=== PATIENT | male | born 1955 | race Caucasian/White ===

== ENCOUNTER 2017-12-20 20:33 | Inpatient (IN) | payer OTHER ==
[~2017-12-20] VITALS: Ht 180.3 cm; Wt 128.7 kg
[2017-12-20] VITALS (184 sets, daily range): BP systolic 190; BP diastolic 97; PULSE 80; TEMP 97; O2SAT 83–97
[~2017-12-20 20:33] MED LIST: ASPIRIN 81M81 MG/TA2 PO; FLOMAX 0.40.4 MG/CAP PO; MULTIPLE VITAMI1 CAP PO; PRILOSEC 20MG20 MG PO; PRINZIDE 25 MG-1 TAB PO; TENORMIN 2525 MG/TAB PO; TIROSINT75 MCG PO
[2017-12-20] MEDS ORDERED: PRINIVIL20 MG PO (22:30)
[2017-12-20] MEDS ORDERED: HCTZ 25MG TAB25 MG PO (22:30)
[2017-12-20] MEDS ORDERED: PROAIR HFA0.09 MG/AC IH (22:31)
[2017-12-20] MEDS ORDERED: TENORMIN 2525 MG/TAB PO (22:31)
[2017-12-20] MEDS ORDERED: VITAMIN D 1001000 IU PO (22:33)
[2017-12-20] MEDS ORDERED: SINGULAIR 110 MG/TAB PO (22:36)
[2017-12-20] MEDS ORDERED: LIDEX OINT15GM TP (22:38)
[2017-12-20] MEDS ORDERED: ACIPHEX20 MG PO (22:38)
[2017-12-20] MEDS ORDERED: LIPITOR 80MG80 MG PO (22:39)
[2017-12-20] MEDS ORDERED: SPIRIVA RESPIMAT4 GM IH (22:41)
[2017-12-20] MEDS ORDERED: SYNTHROID0.088 MG/T PO (22:42)
[2017-12-21] VITALS (789 sets, daily range): BP systolic 112–178; BP diastolic 49–111; PULSE 42–85; TEMP 97.1–98.9; O2SAT 89–99
[2017-12-21 06:11] LABS: BASO % 0.2 % (0.0-2.0); EOS # 0.1 (0.0-0.7); EOS % 0.6 % (0-4.0); GRAN % 61.6 % (42.2-75.2); LYMPH # 3.3 (1.2-3.4); LYMPH % 28.9 % (20.0-51.0); MEAN CELL VOLUME 74 fl (80.0-100.0); MEAN CORPUSCULAR HGB CONC 30 g/dl (33.0-37.0); MEAN PLATELET VOLUME 9.9 fl (7.4-10.4); MONO # 0.9 (0.1-0.6); MONO % 8.3 % (1.7-9.3); PLATELET COUNT 239 K/mm3 (130-400); RED BLOOD COUNT 4.95 M/mm3 (4.20-5.60); REDCELL DISTRIBUTION WIDTH-CV 16.1 % (11.5-14.5)
[2017-12-21 06:17] LABS: HEMATOCRIT 36.7 % (42.0-52.0); HEMOGLOBIN 10.9 g/dl (13.5-18.0); MEAN CORPUSCULAR HEMOGLOBIN 22 pg (27.0-31.0)
[2017-12-21 06:18] LABS: ANION GAP 11 mmol/L (7-16); BLOOD UREA NITROGEN 21 mg/dL (9-20); CALCIUM 8.9 mg/dL (8.4-10.2); CARBON DIOXIDE 30 mmol/L (22-30); CHLORIDE 99 mmol/L (98-107); CREATININE, serum 0.88 mg/dL (0.66-1.25); GLUCOSE 105 mg/dL (74-106); POTASSIUM 3.4 mmol/L (3.4-5.0); SODIUM 139 mmol/L (137-145)
[2017-12-21 06:20] LABS: CHOLESTEROL RISK RATIO 3.6
[2017-12-21 06:30] LABS: TROPONIN-I < 0.012 ng/mL (0.000-0.034)
[2017-12-22 00:04] LABS: HOMOCYSTEINE 7.1 umol/L (5.5-16.2)
[2017-12-22 03:04] VITALS: BP 154/79; PULSE 67; TEMP 98
[2017-12-22 05:11] VITALS: BP 148/81; PULSE 71; TEMP 98.4
[2017-12-22 06:00] LABS: INR 1.1 (0.8-3.0); PROTHROMBIN TIME 13.2 SECONDS (9.7-12.8)
[2017-12-22 08:24] LABS: CALCIUM 9.3 mg/dL (8.4-10.2); CREATININE, serum 0.95 mg/dL (0.66-1.25); POTASSIUM 4.2 mmol/L (3.4-5.0)
[2017-12-22 09:33] LABS: FACTOR V LEIDEN MUTATION B Negative (Negative); PT G20210A MUTATION B Negative (Negative)
[2017-12-22 10:45] VITALS: BP 166/80; PULSE 79; TEMP 97.5
[2017-12-22 16:30] VITALS: BP 136/64; PULSE 74; TEMP 97.9
[2017-12-22 22:00] VITALS: BP 126/65; PULSE 78; TEMP 98
[2017-12-23 01:29] VITALS: BP 142/72; PULSE 75; TEMP 97.8
[2017-12-23 04:23] VITALS: BP 137/59; PULSE 69; TEMP 98.1
[2017-12-23 07:06] LABS: HEMATOCRIT 37.5 % (42.0-52.0); MEAN CELL VOLUME 74 fl (80.0-100.0); MEAN CORPUSCULAR HEMOGLOBIN 22 pg (27.0-31.0); MEAN CORPUSCULAR HGB CONC 29 g/dl (33.0-37.0); PLATELET COUNT 230 K/mm3 (130-400); RED BLOOD COUNT 5.04 M/mm3 (4.20-5.60); REDCELL DISTRIBUTION WIDTH-CV 15.9 % (11.5-14.5)
[2017-12-23 10:58] VITALS: BP 125/73; PULSE 84; TEMP 98.3
[2017-12-23 16:15] VITALS: BP 159/75; PULSE 76; TEMP 98.3
[2017-12-23 18:40] VITALS: BP 138/74; PULSE 84; TEMP 98.7
[2017-12-23 20:38] VITALS: BP 146/71; PULSE 77; TEMP 98
[2017-12-24 06:15] VITALS: BP 120/48; PULSE 70; TEMP 98
[2017-12-24 07:18] LABS: HEMATOCRIT 39.2 % (42.0-52.0); MEAN CELL VOLUME 75 fl (80.0-100.0); MEAN CORPUSCULAR HEMOGLOBIN 22 pg (27.0-31.0); MEAN CORPUSCULAR HGB CONC 30 g/dl (33.0-37.0); PLATELET COUNT 234 K/mm3 (130-400); RED BLOOD COUNT 5.24 M/mm3 (4.20-5.60); REDCELL DISTRIBUTION WIDTH-CV 15.9 % (11.5-14.5)
[2017-12-24 07:21] LABS: HEMOGLOBIN 11.6 g/dl (13.5-18.0)
[2017-12-24 07:30] LABS: ALBUMIN 3.8 gm/dL (3.5-5.0); BILIRUBIN,TOTAL 0.5 mg/dL (0.0-1.0); CALCIUM 9.4 mg/dL (8.4-10.2); CREATININE, serum 0.9 mg/dL (0.66-1.25); POTASSIUM 3.8 mmol/L (3.4-5.0); TOTAL PROTEIN 7.2 gm/dL (6.4-8.2)
[2017-12-24] MEDS ORDERED: ELIQUIS 5MG PO ×2 (09:48→09:49)
[2017-12-24 10:04] VITALS: BP 142/57; PULSE 73; TEMP 97.8
[2017-12-24 14:03] VITALS: BP 140/88; PULSE 91; TEMP 98.5
[2017-12-24 14:59] LABS: LUPUS ANTICOAGULANT INR 1.1 (()); LUPUS ANTICOAGULANT PT 12.2 sec (())
[2017-12-26 11:20] LABS: PROTEIN C ACTIVITY 128 % (70-150)
[2017-12-26 11:22] LABS: ANTI-THROMBIN III 88 % (72-128)
== END 2017-12-24 14:57 | disposition home or self-care (01) | DRG 176 ==
LOC: IMCU 20:33 → ICU 20:45 → SURG 12-21 14:45
PROVIDERS: Internal Medicine; Internal Medicine Pulmonary Disease; Nurse Practitioner
DX: I26.99 Other pulmonary embolism without acute cor pulmonale (principal); I82.4Z1 Acute embolism and thrombosis of unspecified deep veins of right distal lower extremity; I10 Essential (primary) hypertension; E78.5 Hyperlipidemia, unspecified; G47.33 Obstructive sleep apnea (adult) (pediatric); J44.9 Chronic obstructive pulmonary disease, unspecified; N40.0 Benign prostatic hyperplasia without lower urinary tract symptoms; E03.9 Hypothyroidism, unspecified; E11.65 Type 2 diabetes mellitus with hyperglycemia; K21.9 Gastro-esophageal reflux disease without esophagitis
CPT/HCPCS: 99232-AI; 99233-AI; 99239; J1644

== ENCOUNTER → 2018-02-26 | Outpatient (CLI) | payer OTHER ==
[~2018-02-26] MED LIST changes: +ACIPHEX20 MG PO; +ELIQUIS 5MG PO; +HCTZ 25MG TAB25 MG PO; +LIDEX OINT15GM TP; +LIPITOR 80MG80 MG PO; +PRINIVIL20 MG PO; +PROAIR HFA0.09 MG/AC IH; +SINGULAIR 110 MG/TAB PO; +SPIRIVA RESPIMAT4 GM IH; +SYNTHROID0.088 MG/T PO; +VITAMIN D 1001000 IU PO
== END ==
LOC: COL.VAS 09:50
DX: I65.23 Occlusion and stenosis of bilateral carotid arteries (principal); H53.132 Sudden visual loss, left eye